=== PATIENT | male | born 1950 | race Caucasian/White ===

== ENCOUNTER 2020-12-19 11:02 | Emergency (ER) | payer OTHER, MEDICARE, SELFPAY ==
[2020-12-19 11:02] VITALS: BP 137/87; PULSE 92; RESP 18; TEMP 36.9; O2SAT 95
--- NOTE | 2020-12-19 11:18 | ED.WOUNDLAC ---
HPI - Wound/Laceration General Chief Complaint: Wound/Laceration Stated Complaint: forehead laceration History of Present Illness HPI narrative: Patient is a 70-year-old male who presents ER with laceration to his right forehead. He was in a parking lot getting his taxes done when he misjudged his footing at the curb and struck his head on a sign. He did not lose consciousness. He did not fall to the ground. He is on no blood thinners. No change in vision or hearing. Tetanus shot up-to-date. Related Data Allergies Allergy/AdvReac Type Severity Reaction Status Date / Time Sulfa (Sulfonamide Allergy Unknown Verified 12/19/20 11:43 Antibiotics) Review of Systems Eyes: Eyes: Denies change in vision and Denies photophobia Integumentary/Breasts: Comments: Forehead laceration Neurologic: Denies dizziness, Denies headache(s), Denies focal weakness and Denies numbness PMFSH Past Medical History Medical History (Updated 12/19/20 @ 12:08 by Sree Atwood MD) Hypertension Surgical History Surgical History (Updated 12/19/20 @ 11:26 by Sree Atwood MD) History of arthroplasty of left shoulder History of orthopedic surgery left ankle repair Social History Social History (Updated 12/19/20 @ 11:29 by Sree Atwood MD) Smoking status: Former smoker Gender identity (if verbalized by the patient): Male Exam Narrative: Exam Narrative: GENERAL: Well-appearing, well-nourished, and in no acute distress. HEAD: Normocephalic, 3.5 cm laceration lateral right forehead. EYES: PERRL and EOMI. NEURO: Clear speech. Ambulates with a steady gait. Alert and oriented x3. PSYCH: Normal mood and affect. Course Course Emergency Course: brief episode of light headedness with lidocaine administration but no LOC. Patient has history of vasovagal syncope recurrently throughout life. Patient actually was telling a story about having it occurred from while he was being worked up for the draft when this occurred. Vital Signs Vital signs: Vital Signs Temperature 98.4 F 12/19/20 11:02 Pulse Rate 92 12/19/20 11:02 Respiratory Rate 18 12/19/20 11:02 Blood Pressure 137/87 12/19/20 11:02 Pulse Oximetry 95 12/19/20 11:02 Temperature 98.4 F 12/19/20 11:02 Pulse Rate 92 12/19/20 11:02 Respiratory Rate 18 12/19/20 11:02 Blood Pressure 137/87 12/19/20 11:02 Pulse Oximetry 95 12/19/20 11:02 Procedures Laceration Laceration 1: Date: 12/19/20 Time: 11:50 Site: other (right forehead) Size (cm): 3.5 Description: flap (lenticular) Depth: simple, single layer Local Anesthetic: lidocaine 1% and with epi Amount of anesthesia used (mL): 3 Pre-repair: irrigated and deep structures intact ====== Skin Level ====== Skin layer closed with: nylon Size (cm): 5-0 Number of sutures: 7 Technique: simple, interrupted ====== Subcutaneous Layer ====== ====== Muscle Layer ====== ====== Tendon Layer ====== Discharge Plan Discharge Clinical Impression: Laceration Patient Disposition: Home, Self-Care Condition: Stable Instructions: Care For Your Stitches (ED), Laceration (ED) Additional Instructions: You will need to to remove your sutures in 7 days. Return the ER or do this at home or your primary care doctor's office. Return to the ER if you lose consciousness, your wound is red and hot, it is draining pus, you have fever over 100.4 ?F. Follow-up/Referrals: Nazario,Arik Shaw MD [Primary Care Provider] - 1 Week
[2020-12-19 12:36] VITALS: BP 116/65; PULSE 78; RESP 18; O2SAT 98
== END 2020-12-19 12:36 | disposition home or self-care (01) ==
PROVIDERS: Emergency Provider Emergency Medicine; PCP Internal Medicine
DX: S01.81XA Laceration without foreign body of other part of head, initial encounter (principal); I10 Essential (primary) hypertension; W22.09XA Striking against other stationary object, initial encounter
CPT/HCPCS: 12013; 99282